=== PATIENT | female | born 1945 | race Caucasian/White ===

== ENCOUNTER 2016-07-25 20:09 | Inpatient (IN) | payer MEDICARE ==
[~2016-07-25] VITALS: Ht 165.1 cm; Wt 80.0 kg
[~2016-07-25 20:09] MED LIST: ALEN1TAB48 PO; ASPI1TAB69 PO; CEPH-460 PO; CO Q200C PO; LEVO125T4 PO; LISI-515 PO; LOVA20TA PO; METO50TA PO; MULTCAP13 PO; NIAC500C4; OXYB5TAB10 PO; PROBCAP3 PO; ZOFR4TAB3 SL
[2016-07-25 20:12] VITALS: BP 197/99; PULSE 82; RESP 16; TEMP 98.2; O2SAT 99
[2016-07-25] MEDS ORDERED: SODIUM CHLOR 0.9% 1000 ML INJ 1,000 ML IV SCH ×2 (20:25→22:09)
[2016-07-25] MEDS ORDERED: MORPHINE SULFATE 4 MG/ML INJ IV PUSH ONE (20:30)
[2016-07-25] MEDS ORDERED: SODIUM CHLORIDE 0.9% FLUSH 5 ML FLUSH IVF PRN (20:30)
[2016-07-25] MEDS ORDERED: FAMOTIDINE 20 MG/2 ML VIAL IV PUSH ONE (20:30)
--- NOTE | 2016-07-25 20:50 | PD ---
HPI Chief Complaint: Abdominal Pain Time Seen by Provider: 20:15 Travel History International Travel<30 days: No Contact w/Intl Traveler<30days: No Traveled to known affect area: No History of Present Illness HPI The patient is a 71-year-old female who presents to the emergency department via EMS for nausea, vomiting, and epigastric abdominal pain. The patient states her symptoms started this morning with epigastric abdominal pain that felt like a "knot", nonradiating, similar to reflux, and associated with mild nausea. The patient didn't develop vomiting approximate 5 PM tonight which she describes as yellow in color. The patient's last bowel movement was this morning, normal per the patient, and she has been passing gas without difficulty. The patient does have a history of previous abdominal surgeries including cholecystectomy, appendectomy, hysterectomy, and surgery for small bowel obstruction. The patient also notes a chronic abdominal hernia were her incisions relocated. The patient denies any fever, chills, or sweats. She denies any accompanying diarrhea. The patient's symptoms are moderate, there are no alleviating or exacerbating factors. The patient's primary physician is Dr. Peres. [facility] Past Medical History Cancer: No Cardiovascular Problems: No High Cholesterol: Yes Diabetes: No Diminished Hearing: No Endocrine: No Glaucoma: Yes Genitourinary: No Hepatitis: Yes ( YOUTH) Hiatal Hernia: No Hypertension: Yes Immune Disorder: No Musculoskeletal: Yes (ARTHRITIS, R ROTATOR CUFF) Neurologic: No Psychiatric: No Reproductive: No Respiratory: No Thyroid Disease: Yes (HYPO ) Tetanus Vaccination: < 5 Years Menopausal: Yes Past Surgical History Abdominal Surgery: Yes (APPY, CHOLECYSTECTOMY 1974) Appendectomy: Yes Body Medical Devices: LEFT WRIST TITANIUM PLATE AND SCREWS Cholecystectomy: Yes Eye Surgery: Yes (ZINA CATARACT SURGERY 2011) Gynecologic Surgery: Yes (TOTAL ABDOMINAL HYSTERECTOMY 1989) Hysterectomy: Yes Joint Replacement: No Oral Surgery: Yes (T & A) Pacemaker: No Tonsillectomy: Yes Other Surgery: Yes (bowel ob) Social History Alcohol Use: Yes (WINE OCCASIONALLY) Tobacco Use: No Substance Use: No Allergies-Medications (Allergen,Severity, Reaction): Coded Allergies: Codeine (Verified Allergy, Severe, RASH, 07/25/16) Sulfa (Verified Allergy, Severe, NAUSEA, 07/25/16) WILLIAM Inhibitors (Unverified Adverse Reaction, Intermediate, SEVERE HEADACHE , 07/25/16) Reported Meds & Prescriptions Reported Meds & Active Scripts Active Zofran Odt (Ondansetron Odt) 4 Mg Tab 4 Mg SL Q8HR PRN May substitute non-ODT form. Reported Probiotic & Acidophilus F (Probiotic Product) 1 Cap Cap Multi Complete (Multiple Vitamins W/ Minerals) 1 Cap Cap Co Q-10 (Coenzyme Q10 (Ubidecarenone)) 200 Mg Cap Ditropan (Oxybutynin Chloride) 5 Mg Tab 5 Mg PO DAILY Metoprolol Tartrate 50 Mg Tab 50 Mg PO BID Lovastatin 20 Mg Tab 40 Mg PO DAILY Lisinopril 20 Mg Tab 20 Mg PO BID Levothyroxine (Levothyroxine Sodium) 125 Mcg Tab 125 Mcg PO DAILY Alendronate (Alendronate Sodium) 70 Mg Tab 70 Mg PO Q7D Aspirin 81 Mg Tabdr 81 Mg PO DAILY Review of Systems Except as stated in HPI: all other systems reviewed are Neg General / Constitutional: No: Fever Cardiovascular: No: Chest Pain or Discomfort Respiratory: No: Shortness of Breath Gastrointestinal: Positive: Nausea, Vomiting, Abdominal Pain, No: Diarrhea Genitourinary: No: Dysuria Musculoskeletal: No: Myalgias Physical Exam Narrative GENERAL: Awake, alert, pleasant 71-year-old female who appears her stated age and is in no acute respiratory distress. SKIN: Warm and dry. HEAD: Atraumatic. Normocephalic. EYES: Pupils equal and round. No scleral icterus. No injection or drainage. ENT: No nasal bleeding or discharge. Slightly dry mucous membranes. NECK: Trachea midline. No JVD. CARDIOVASCULAR: Regular rate and rhythm. No murmur appreciated. RESPIRATORY: No accessory muscle use. Clear to auscultation. Breath sounds equal bilaterally. GASTROINTESTINAL: Abdomen soft, mild epigastric tenderness. Well-healed scar from the umbilicus inferiorly with reducible anterior abdominal wall hernia. MUSCULOSKELETAL: No obvious deformities. No clubbing. No cyanosis. No edema. NEUROLOGICAL: Awake and alert. No obvious cranial nerve deficits. Motor grossly within normal limits. Normal speech. PSYCHIATRIC: Appropriate mood and affect; insight and judgment normal. Data Data Last Documented VS Vital Signs Date Time Temp Pulse Resp B/P Pulse Ox O2 Delivery O2 Flow Rate FiO2 07/25/16 21:35 16 07/25/16 20:58 99 Room Air 07/25/16 20:12 98.2 82 197/99 Orders Complete Blood Count With Diff (07/25/16 20:25) Comprehensive Metabolic Panel (07/25/16 20:25) Lipase (07/25/16 20:25) Urinalysis - C+S If Indicated (07/25/16 20:25) Ct Abd/Pel W/O Iv Contrast (07/25/16 20:25) Iv Access Insert/Monitor (07/25/16 20:25) Ecg Monitoring (07/25/16 20:25) Oximetry (07/25/16 20:25) Morphine Inj (Morphine Inj) (07/25/16 20:30) Sodium Chlor 0.9% 1000 Ml Inj (Ns 1000 M (07/25/16 20:25) Sodium Chloride 0.9% Flush (Ns Flush) (07/25/16 20:30) Famotidine Inj (Pepcid Inj) (07/25/16 20:30) Urine Culture (07/25/16 20:50) Ceftriaxone Inj (Rocephin Inj) (07/25/16 22:00) Consult Colorectal Surgery (07/25/16 ) Ns + Kcl 20 Meq Inj (Ns + Kcl 20 Meq Inj (07/25/16 22:00) Labs Laboratory Tests Test 07/25/16 07/25/16 20:37 20:50 White Blood Count 20.2 TH/MM3 Red Blood Count 4.47 MIL/MM3 Hemoglobin 13.7 GM/DL Hematocrit 41.4 % Mean Corpuscular Volume 92.6 FL Mean Corpuscular Hemoglobin 30.7 PG Mean Corpuscular Hemoglobin 33.1 % Concent Red Cell Distribution Width 14.0 % Platelet Count 281 TH/MM3 Mean Platelet Volume 9.9 FL Neutrophils (%) (Auto) 92.5 % Lymphocytes (%) (Auto) 4.0 % Monocytes (%) (Auto) 3.3 % Eosinophils (%) (Auto) 0.1 % Basophils (%) (Auto) 0.1 % Neutrophils # (Auto) 18.7 TH/MM3 Lymphocytes # (Auto) 0.8 TH/MM3 Monocytes # (Auto) 0.7 TH/MM3 Eosinophils # (Auto) 0.0 TH/MM3 Basophils # (Auto) 0.0 TH/MM3 CBC Comment DIFF FINAL Differential Comment Sodium Level 141 MEQ/L Potassium Level 3.3 MEQ/L Chloride Level 102 MEQ/L Carbon Dioxide Level 30.6 MEQ/L Anion Gap 8 MEQ/L Blood Urea Nitrogen 22 MG/DL Creatinine 1.11 MG/DL Estimat Glomerular Filtration 49 ML/MIN Rate Random Glucose 112 MG/DL Calcium Level 9.6 MG/DL Total Bilirubin 0.5 MG/DL Aspartate Amino Transf 22 U/L (AST/SGOT) Alanine Aminotransferase 28 U/L (ALT/SGPT) Alkaline Phosphatase 75 U/L Total Protein 7.4 GM/DL Albumin 4.0 GM/DL Lipase 143 U/L Urine Color YELLOW Urine Turbidity CLOUDY Urine pH 8.0 Urine Specific [place] 1.013 Urine Protein TRACE mg/dL Urine Glucose (UA) NEG mg/dL Urine Ketones 40 mg/dL Urine Occult Blood NEG Urine Nitrite NEG Urine Bilirubin NEG Urine Urobilinogen LESS THAN 2.0 MG/DL Urine Leukocyte Esterase LARGE Urine RBC 5 /hpf Urine WBC 52 /hpf Urine Squamous Epithelial <1 /hpf Cells Urine Amorphous Sediment RARE Urine Bacteria RARE /hpf Microscopic Urinalysis Comment CULTURE INDICATED MDM Medical Decision Making Medical Screen Exam Complete: Yes Emergency Medical Condition: Yes Medical Record Reviewed: Yes Interpretation(s) CT of the abdomen and pelvis reveals small bowel obstruction secondary to inferior periumbilical hernia containing a loop of small bowel with adjacent inflammatory changes. Fat-containing hernia along the lower abdominal wall inferior to the umbilicus. Punctate nonobstructing left renal calculus measuring 2 mm. Last Impressions Abdomen/Pelvis CT 07/25/162024 Signed Impressions: Service Date/Time: Monday, July 25, 2016 20:33 - CONCLUSION: 1. Small bowel obstruction secondary to inferior paraumbilical hernia containing a loop of small bowel with adjacent inflammatory changes. 2. Fat-containing hernia along the lower abdominal wall inferior to the umbilicus. 3. Punctate nonobstructing left renal calculus measuring 2 mm. Skip Arrieta MD Laboratory Tests Test 07/25/16 07/25/16 20:37 20:50 White Blood Count 20.2 TH/MM3 Red Blood Count 4.47 MIL/MM3 Hemoglobin 13.7 GM/DL Hematocrit 41.4 % Mean Corpuscular Volume 92.6 FL Mean Corpuscular Hemoglobin 30.7 PG Mean Corpuscular Hemoglobin 33.1 % Concent Red Cell Distribution Width 14.0 % Platelet Count 281 TH/MM3 Mean Platelet Volume 9.9 FL Neutrophils (%) (Auto) 92.5 % Lymphocytes (%) (Auto) 4.0 % Monocytes (%) (Auto) 3.3 % Eosinophils (%) (Auto) 0.1 % Basophils (%) (Auto) 0.1 % Neutrophils # (Auto) 18.7 TH/MM3 Lymphocytes # (Auto) 0.8 TH/MM3 Monocytes # (Auto) 0.7 TH/MM3 Eosinophils # (Auto) 0.0 TH/MM3 Basophils # (Auto) 0.0 TH/MM3 CBC Comment DIFF FINAL Differential Comment Sodium Level 141 MEQ/L Potassium Level 3.3 MEQ/L Chloride Level 102 MEQ/L Carbon Dioxide Level 30.6 MEQ/L Anion Gap 8 MEQ/L Blood Urea Nitrogen 22 MG/DL Creatinine 1.11 MG/DL Estimat Glomerular Filtration 49 ML/MIN Rate Random Glucose 112 MG/DL Calcium Level 9.6 MG/DL Total Bilirubin 0.5 MG/DL Aspartate Amino Transf 22 U/L (AST/SGOT) Alanine Aminotransferase 28 U/L (ALT/SGPT) Alkaline Phosphatase 75 U/L Total Protein 7.4 GM/DL Albumin 4.0 GM/DL Lipase 143 U/L Urine Color YELLOW Urine Turbidity CLOUDY Urine pH 8.0 Urine Specific [place] 1.013 Urine Protein TRACE mg/dL Urine Glucose (UA) NEG mg/dL Urine Ketones 40 mg/dL Urine Occult Blood NEG Urine Nitrite NEG Urine Bilirubin NEG Urine Urobilinogen LESS THAN 2.0 MG/DL Urine Leukocyte Esterase LARGE Urine RBC 5 /hpf Urine WBC 52 /hpf Urine Squamous Epithelial <1 /hpf Cells Urine Amorphous Sediment RARE Urine Bacteria RARE /hpf Microscopic Urinalysis Comment CULTURE INDICATED Differential Diagnosis Differential diagnosis includes gastritis, pancreatitis, retained biliary stone , colitis, partial small bowel obstruction, ileus, viral syndrome, dehydration. Narrative Course IV was established, labs were drawn and sent, and the patient was placed on cardiac telemetry monitoring and continuous pulse oximetry monitoring. The patient received Zofran by EMS, therefore, was administered morphine for her discomfort and IV fluids. CT of the abdomen and pelvis was ordered. Patient was also administered Pepcid. CT of the abdomen and pelvis reveals a small bowel obstruction secondary to inferior periumbilical hernia containing a loop of small bowel with adjacent inflammatory changes and fat-containing hernia along the lower abdominal wall inferior to the umbilicus. I was able to reduce the patient's hernia, she had no overlying erythema or significant tenderness associated with the hernia and with the reduction. However, when the patient would sit up right, the hernia would reappear. The patient's surgeon who has been following her hernia is Dr. Carlos, therefore, Dr. Carlos was paged at 9: 06 PM. I discussed the patient with Dr. Carlos at 9:35 PM, he states the patient's hernia has been reducible in the past. Upon examination, the patient's hernia here was reducible and her symptoms improved. After discussion, was agreed if the patient feels better and labs are unremarkable, patient will be discharged home with abdominal binder. However, patient's white count was elevated at 20.2. Patient is afebrile, UA was positive for UTI. Patient had stranding on CT, but hernia is reducible, patient may have partial small bowel obstruction from surgical adhesions, however, do not believe the hernia as the cause of the possible small bowel obstruction. Therefore, patient will be admitted, kept nothing by mouth, and administered IV fluids. The patient was also administered Rocephin 1 g intravenously for UTI. The patient's primary physician is Dr. Starr's, therefore, [facility] were paged for admission. I will put a routine consultation for Dr. Carlos, however, I do believe the patient's hernia is reducible and not the cause of the patient's current symptoms. Physician Communication Physician Communication [facility] were paged for admission. I discussed the patient with Dr. Packer who agrees with admission. Diagnosis Primary Impression: Small bowel obstruction Additional Impression: Urinary tract infection Qualified Code: N30.00 - Acute cystitis without hematuria Admitting Information Admitting Physician Requests: Admit Condition: Stable Fito Gilbert MD Jul 25, 2016 20:50
--- NOTE | 2016-07-25 20:54 | RADRPT ---
EXAM DATE/TIME: 07/25/2016 20:33 [facility] COMPARISON: No previous studies available for comparison. INDICATIONS : Epigastric pain with nausea and vomiting today. ORAL CONTRAST: No oral contrast ingested. RADIATION DOSE: 9.96 CTDIvol (mGy) MEDICAL HISTORY : Hypertension. Hepatitis. sbo, hernia SURGICAL HISTORY : Cholecystectomy. Appendectomy.Hysterectomy. ENCOUNTER: Initial ACUITY: 1 day PAIN SCALE: 8/10 LOCATION: abdomen TECHNIQUE: Volumetric scanning of the abdomen and pelvis was performed. Using automated exposure control and ad justment of the mA and/or kV according to patient size, radiation dose was kept as low as reasonably achievable to obtain optimal diagnostic quality images. FINDINGS: LOWER LUNGS: The visualized lower lungs are clear. LIVER: Homogeneous density without lesion. There is no dilation of the biliary tree. No calcified gallston es. SPLEEN: Normal size without lesion. PANCREAS: Within normal limits. KIDNEYS: Normal in size and shape. There is no mass, stone, or hydronephrosis on the right. Punctate calculus on the left. ADRENAL GLANDS: Within normal limits. VASCULAR: There is no aortic aneurysm. BOWEL/MESENTERY: Dilated small bowel loops leading to periumbilical hernia.. There is no free intraperitoneal air or fluid. ABDOMINAL WALL: Inferior paraumbilical hernia containing small loop of bowel with inflammation. More inferiorly a sec ond fat containing hernia RETROPERITONEUM: There is no lymphadenopathy. BLADDER: No wall thickening or mass. REPRODUCTIVE: Within normal limits. INGUINAL: There is no lymphadenopathy or hernia. MUSCULOSKELETAL: Within normal limits for patient age. CONCLUSION: 1. Small bowel obstruction secondary to inferior paraumbilical hernia containing a loop of small asha l with adjacent inflammatory changes. 2. Fat-containing hernia along the lower abdominal wall inferior to the umbilicus. 3. Punctate nonobstructing left renal calculus measuring 2 mm. Skip Arrieta MD on July 25, 2016 at 20:50 Board Certified Radiologist. This report was verified electronically.
[2016-07-25 20:58] VITALS: RESP 16; O2SAT 99
[2016-07-25 21:22] LABS: AUTOMATED NEUTROPHIL # 18.7 TH/MM3 (1.8-7.7); BASOPHIL % 0.1 % (0.0-2.0); EOSINOPHIL % 0.1 % (0.0-4.0); HEMATOCRIT 41.4 % (35.0-46.0); HEMO FLAGS DIFF FINAL; LYMPHOCYTE # 0.8 TH/MM3 (1.0-4.8); MEAN CELL VOLUME 92.6 FL (80.0-100.0); MEAN CORPUSCULAR HEMOGLOBIN 30.7 PG (27.0-34.0); MEAN CORPUSCULAR HGB CONC 33.1 % (32.0-36.0); MONO % 3.3 % (0.0-8.0); NEUT % 92.5 % (16.0-70.0); PLATELET COUNT 281 TH/MM3 (150-450); RED BLOOD COUNT 4.47 MIL/MM3 (4.00-5.30); WHITE BLOOD COUNT 20.2 TH/MM3 (4.0-11.0)
[2016-07-25 21:46] LABS: BACTERIA, URINE RARE /hpf; BLOOD, URINE NEG (NEG); COMMENT (UR) CULTURE INDICATED; CULTURE IF INDICATED CULTURE INDICATED; GLUCOSE,URINE NEG (NEG); KETONE, URINE 40 mg/dL (NEG); NITRITE,URINE NEG (NEG); SQUAMOUS EPITHELIAL CELL URINE <1 /hpf (0-5); URINE COLOR YELLOW (YELLW/STRAW)
[2016-07-25 21:48] LABS: ALT (GPT) 28 U/L (10-53); ANION GAP 8 MEQ/L (5-15); AST (GOT) 22 U/L (15-37); BICARBONATE 30.6 MEQ/L (21.0-32.0); BLOOD UREA NITROGEN 22 MG/DL (7-18); CHLORIDE 102 MEQ/L (98-107); GLOMERULAR FILTRATION RATE 49 ML/MIN (>89); POTASSIUM 3.3 MEQ/L (3.5-5.1); SODIUM (NA) 141 MEQ/L (136-145)
[2016-07-25 21:50] LABS: ALKALINE PHOSPHATASE 75 U/L (45-117); TOTAL BILIRUBIN ADULT 0.5 MG/DL (0.2-1.0)
[2016-07-25] MEDS ORDERED: cefTRIAXone INJ 1,000 MG in SODIUM CHLORIDE 0.9% INJ 100 ML IV ONE (22:00)
[2016-07-25] MEDS ORDERED: MORPHINE SULFATE 4 MG/ML INJ IV PUSH PRN (22:15)
[2016-07-25] MEDS ORDERED: SODIUM CHLORIDE 0.9% FLUSH 5 ML FLUSH FLUSH PRN (22:15)
[2016-07-25] MEDS ORDERED: NALOXONE HCL 0.4 MG/ML AMP IV PRN (22:15)
[2016-07-25] MEDS ORDERED: ONDANSETRON HCL 4 MG/2 ML VIAL IVP PRN (22:15)
[2016-07-25] MEDS: NS + KCL 20 MEQ INJ 1,000 ML IV SCH (22:31)
--- NOTE | 2016-07-26 00:53 | HHI.HP ---
[facility] Service [facility] Primary Care Physician Sandy Peres MD Admission Diagnosis small bowel obstruction, reducible hernia, UTI, leukocytosis, hypoka Diagnoses: Chief Complaint: abd pain and vomiting Travel History International Travel<30 Days: No Contact w/Intl Traveler <30 Da: No Traveled to Known Affected Are: No History of Present Illness History taken from patient and ED physician. 71-year-old female with a history of hypertension, hypothyroidism, hyperlipidemia and arthritis presented to the ED with complaints of epigastric pain and vomiting. Patient states at home she was having epigastric pain and vomited twice at home. No vomiting in hospital. She states her last BM was yesterday, and is unsure if she is passing gas. She denies any chest pain, sob, fever or chills. She does have a history of bowel obstruction, last episode was June 2015. Patient does have a large hernia that was reduced in ER, patient states she is having less pain since it was reduced. Review of Systems Constitutional: DENIES: Fever, Chills Respiratory: DENIES: Cough, Sputum production, Shortness of breath Cardiovascular: DENIES: Chest pain, Lower Extremity Edema, Orthopnea Gastrointestinal: COMPLAINS OF: Abdominal pain, DENIES: Black stools, Bloody stools, Constipation, Diarrhea, Nausea, Vomiting Genitourinary: DENIES: Hematuria, Dysuria Musculoskeletal: DENIES: Joint pain, Back pain, Neck pain Integumentary: DENIES: Rash Hematologic/lymphatic: DENIES: Lymphadenopathy Immunologic/allergic: DENIES: Urticaria Neurologic: DENIES: Headache, Localized weakness Past Family Social History Past Medical History Hepatitis as a child, unknown what kind Hypertension Hyperlipidemia Arthritis Bowel obstruction 06/2015 Past Surgical History Hysterectomy Appendectomy Cholecystectomy ORIF of left wrist Right rotator cuff surgery Reported Medications Reported Meds & Active Scripts Active Zofran Odt (Ondansetron Odt) 4 Mg Tab 4 Mg SL Q8HR PRN May substitute non-ODT form. Reported Probiotic & Acidophilus F (Probiotic Product) 1 Cap Cap Multi Complete (Multiple Vitamins W/ Minerals) 1 Cap Cap Co Q-10 (Coenzyme Q10 (Ubidecarenone)) 200 Mg Cap Ditropan (Oxybutynin Chloride) 5 Mg Tab 5 Mg PO DAILY Metoprolol Tartrate 50 Mg Tab 50 Mg PO BID Lovastatin 20 Mg Tab 40 Mg PO DAILY Lisinopril 20 Mg Tab 20 Mg PO BID Levothyroxine (Levothyroxine Sodium) 125 Mcg Tab 125 Mcg PO DAILY Alendronate (Alendronate Sodium) 70 Mg Tab 70 Mg PO Q7D Aspirin 81 Mg Tabdr 81 Mg PO DAILY Allergies: Coded Allergies: Codeine (Verified Allergy, Severe, RASH, 08/20/16) Sulfa (Verified Allergy, Severe, NAUSEA, 08/20/16) WILLIAM Inhibitors (Unverified Adverse Reaction, Intermediate, SEVERE HEADACHE , 08/20/16) Active Ordered Medications Current Medications Medications (Trade) Dose Ordered Sig/Melvin Route Start Time Stop Time Status Last Admin IV Flush 2 ml 2 ml UNSCH PRN IVF 07/25/16 20:30 (NS + KCl 20 Meq Inj) 1,000 ml @ 125 mls/hr Q8H IV 07/25/16 22:00 07/25/16 22:31 (NS Flush) 2 ml UNSCH PRN FLUSH 07/25/16 22:15 (NS Flush) 2 ml BID FLUSH 07/26/16 09:00 (Zofran Inj) 4 mg Q6H PRN IVP 07/25/16 22:15 (Narcan Inj) 0.4 mg UNSCH PRN IV 07/25/16 22:15 Morphine Sulfate 2 mg 2 mg Q4HR PRN IV PUSH 07/25/16 22:15 (Rocephin Inj/NS Inj) 100 ml @ 200 mls/hr Q24H IV 07/26/16 22:00 Family History Mom: heart disease Dad: lung disease Social History Tobacco use: Denies Alcohol use: Occasionally Illicit drug use: Denies Physical Exam Vital Signs Vital Signs Date Time Temp Pulse Resp B/P Pulse Ox O2 Delivery O2 Flow Rate FiO2 07/25/16 21:35 16 07/25/16 20:58 16 99 Room Air 07/25/16 20:21 16 07/25/16 20:12 98.2 82 16 197/99 99 Physical Exam GENERAL: This is a well-nourished, well-developed patient, in no apparent distress. SKIN: No rashes, ecchymoses or lesions. Cool and dry. HEAD: Atraumatic. Normocephalic. EYES: Pupils equal round and reactive. ENT: Nose without bleeding, purulent drainage or septal hematoma. Airway patent. NECK: Trachea midline. No JVD CARDIOVASCULAR: Regular rate and rhythm without murmurs, gallops, or rubs. RESPIRATORY: Clear to auscultation. Breath sounds equal bilaterally. No wheezes , rales, or rhonchi. GASTROINTESTINAL: Abdomen soft, tender, nondistended. Ventral hernia noted. No guarding. MUSCULOSKELETAL: Extremities without clubbing, cyanosis, or edema. No joint tenderness, effusion, or edema noted. No calf tenderness. NEUROLOGICAL: Awake and alert.Motor and sensory grossly within normal limits. Normal speech. Laboratory Laboratory Tests Test 07/25/16 07/25/16 20:37 20:50 White Blood Count 20.2 Red Blood Count 4.47 Hemoglobin 13.7 Hematocrit 41.4 Mean Corpuscular Volume 92.6 Mean Corpuscular Hemoglobin 30.7 Mean Corpuscular Hemoglobin 33.1 Concent Red Cell Distribution Width 14.0 Platelet Count 281 Mean Platelet Volume 9.9 Neutrophils (%) (Auto) 92.5 Lymphocytes (%) (Auto) 4.0 Monocytes (%) (Auto) 3.3 Eosinophils (%) (Auto) 0.1 Basophils (%) (Auto) 0.1 Neutrophils # (Auto) 18.7 Lymphocytes # (Auto) 0.8 Monocytes # (Auto) 0.7 Eosinophils # (Auto) 0.0 Basophils # (Auto) 0.0 CBC Comment DIFF FINAL Differential Comment Sodium Level 141 Potassium Level 3.3 Chloride Level 102 Carbon Dioxide Level 30.6 Anion Gap 8 Blood Urea Nitrogen 22 Creatinine 1.11 Estimat Glomerular Filtration 49 Rate Random Glucose 112 Calcium Level 9.6 Total Bilirubin 0.5 Aspartate Amino Transf 22 (AST/SGOT) Alanine Aminotransferase 28 (ALT/SGPT) Alkaline Phosphatase 75 Total Protein 7.4 Albumin 4.0 Lipase 143 Urine Color YELLOW Urine Turbidity CLOUDY Urine pH 8.0 Urine Specific [place] 1.013 Urine Protein TRACE Urine Glucose (UA) NEG Urine Ketones 40 Urine Occult Blood NEG Urine Nitrite NEG Urine Bilirubin NEG Urine Urobilinogen LESS THAN 2.0 Urine Leukocyte Esterase LARGE Urine RBC 5 Urine WBC 52 Urine Squamous Epithelial <1 Cells Urine Amorphous Sediment RARE Urine Bacteria RARE Microscopic Urinalysis Comment CULTURE INDICATED Date/Time Procedure Status Source Growth 07/25/16 20:50 Urine Culture Received Urine Clean Catch Pending Result Diagram: 07/25/16203607/25/162036 Imaging Last Impressions Abdomen/Pelvis CT 07/25/162024 Signed Impressions: Service Date/Time: Monday, July 25, 2016 20:33 - CONCLUSION: 1. Small bowel obstruction secondary to inferior paraumbilical hernia containing a loop of small bowel with adjacent inflammatory changes. 2. Fat-containing hernia along the lower abdominal wall inferior to the umbilicus. 3. Punctate nonobstructing left renal calculus measuring 2 mm. Skip Arrieta MD Assessment and Plan Problem List: (1) Small bowel obstruction ICD Code: K56.69 Status: Acute (2) Urinary tract infection ICD Code: N39.0 Status: Acute (3) Hypokalemia ICD Code: E87.6 Status: Acute (4) Hypertension ICD Code: I10 Status: Chronic (5) CKD (chronic kidney disease) stage 3, GFR 30-59 ml/min ICD Code: N18.3 Status: Chronic Assessment and Plan 71-year-old female with a history of hypertension, hypothyroidism, hyperlipidemia and arthritis presented with: Small bowel obstruction Images: Abdominal/pelvis CT shows Small bowel obstruction secondary to inferior paraumbilical hernia containing a loop of small bowel with adjacent inflammatory changes.Fat-containing hernia along the lower abdominal wall inferior to the umbilicus. Punctate nonobstructing left renal calculus measuring 2 mm. -Consult colorectal surgery -Nothing by mouth -Check hepatitis panel, unknown type as a child Urinary tract infection Labs: WBC 20, neutrophils 93%, UA shows large esterase -IV Rocephin -Urine culture pending Hypokalemia Labs: Potassium 3.3 -Supportive IVF NS 20K -Trend BMP Hypertension, chronic -Reorder home medications: Lisinopril, metoprolol -Monitor vitals Chronic kidney disease, stage 3, chronic Labs: GFR 49 -Avoid nephrotoxic medications DVT prophylaxis: SCDs Written by April DIXON, acting as scribe for Dr. Packer on 07/26/16 at 0442. The documentation accurately reflects the work performed [id number] and decisions made by me and the physician Dr Packer on 07/26/16. All or portions of this note were transcribed by diony [April Rangel]. I, Dr. Fernando Packer personally performed the history, physical exam, and medical decision making; and confirmed the accuracy of the information in the transcribed note. Authenticated by Dr. Fernando Packer on 07/26/16 at 0445 Discussed Condition With Patient and RN Physician Certification 2 Midnight Certification Type: Admission for Inpatient Services Order for Inpatient Services The services are ordered in accordance with Medicare regulations or non- Medicare payer requirements, as applicable. In the case of services not specified as inpatient-only, they are appropriately provided as inpatient services in accordance with the 2-midnight benchmark. Estimated LOS (days): 3 days is the estimated time the patient will need to remain in the hospital, assuming treatment plan goals are met and no additional complications. Post-Hospital Plan: Home Problem Qualifiers (1) Urinary tract infection: Qualified Code: N30.00 - Acute cystitis without hematuria April Rangel Jul 26, 2016 00:53 Fernando Packer MD Aug 31, 2016 13:04
[2016-07-26] MEDS ORDERED: HYDROcodone 5 MG/HOMATROPINE 1.5 MG SYRUP 5 ML CUP PO ONE (01:45)
[2016-07-26 03:31] VITALS: BP 177/86; PULSE 80; RESP 18; O2SAT 99
[2016-07-26 05:51] LABS: AUTOMATED NEUTROPHIL # 9.7 TH/MM3 (1.8-7.7); BASOPHIL % 0.1 % (0.0-2.0); EOSINOPHIL % 0.1 % (0.0-4.0); HEMATOCRIT 36.9 % (35.0-46.0); HEMO FLAGS DIFF FINAL; LYMPH % 12.7 % (9.0-44.0); LYMPHOCYTE # 1.5 TH/MM3 (1.0-4.8); MEAN CELL VOLUME 92.6 FL (80.0-100.0); MEAN CORPUSCULAR HEMOGLOBIN 31.3 PG (27.0-34.0); MEAN CORPUSCULAR HGB CONC 33.8 % (32.0-36.0); NEUT % 81.1 % (16.0-70.0); PLATELET COUNT 259 TH/MM3 (150-450); RED BLOOD COUNT 3.99 MIL/MM3 (4.00-5.30); RED CELL DISTRIBUTION WIDTH 14.2 % (11.6-17.2)
[2016-07-26 06:00] LABS: BICARBONATE 27.8 MEQ/L (21.0-32.0); POTASSIUM 4.2 MEQ/L (3.5-5.1)
[2016-07-26] MEDS: NS + KCL 20 MEQ INJ 1,000 ML IV SCH (06:03)
[2016-07-26 07:38] VITALS: BP 155/77; PULSE 91; RESP 18; O2SAT 96
--- NOTE | 2016-07-26 07:55 | HHI.PR ---
Subjective Remarks in no distress. afebrile. abdominal pain is better. no nausea or vomiting. Objective Vitals Vital Signs Date Time Temp Pulse Resp B/P Pulse Ox O2 Delivery O2 Flow Rate FiO2 07/26/16 07:38 91 18 155/77 96 Room Air 07/26/16 06:02 18 07/26/16 03:31 80 18 177/86 99 Room Air 07/25/16 21:35 16 07/25/16 20:58 16 99 Room Air 07/25/16 20:21 16 07/25/16 20:12 98.2 82 16 197/99 99 Result Diagram: 07/26/16 0504 07/26/16 0504 Imaging Last Impressions Abdomen/Pelvis CT 07/25/162024 Signed Impressions: Service Date/Time: Monday, July 25, 2016 20:33 - CONCLUSION: 1. Small bowel obstruction secondary to inferior paraumbilical hernia containing a loop of small bowel with adjacent inflammatory changes. 2. Fat-containing hernia along the lower abdominal wall inferior to the umbilicus. 3. Punctate nonobstructing left renal calculus measuring 2 mm. Skip Arrieta MD Objective Remarks GENERAL: This is a well-nourished, well-developed patient, in no apparent distress. CARDIOVASCULAR: Regular rate and regular rhythm without murmurs, gallops, or rubs. RESPIRATORY: Clear to auscultation. Breath sounds equal bilaterally. No wheezes , rales, or rhonchi. GASTROINTESTINAL: Abdomen soft, non-tender, nondistended. Normal, active bowel sounds MUSCULOSKELETAL: Extremities without clubbing, cyanosis, or edema. NEURO: Alert & Oriented x4 to person, place, time, situation. Moves all ext x4 Procedures none Medications and IVs Current Medications Morphine Sulfate 2 mg 2 mg ONCE ONCE IV PUSH Last administered on 07/25/16 20: 57; Start 07/25/16 at 20:30; Stop 07/25/16 at 20:31; Status DC Sodium Chloride (NS 1000 ml Inj) 1,000 ml @ 1,000 mls/hr Q1H IV Last administered on 07/25/16 20:57; Start 07/25/16 at 20:25; Stop 07/25/16 at 21:24; Status DC IV Flush (NS Flush) 2 ml UNSCH PRN IVF FLUSH AFTER USING IV ACCESS; Start at 20:30 Famotidine 20 mg 20 mg ONCE ONCE IV PUSH Last administered on 07/25/16 20:57; Start 07/25/16 at 20:30; Stop 07/25/16 at 20:31; Status DC Ceftriaxone Sodium 1000 mg/ Sodium Chloride 100 ml @ 200 mls/hr ONCE ONCE IV Last administered on 07/25/16 22:31; Start 07/25/16 at 22:00; Stop 07/25/16 at 22: 29; Status DC Potassium Chloride/Sodium Chloride 1,000 ml @ 125 mls/hr Q8H IV Last administered on 07/26/16 06:03; Start 07/25/16 at 22:00 Sodium Chloride (NS 1000 ml Inj) 1,000 ml @ 100 mls/hr Q10H IV ; Start 07/25/16 at 22:09; Stop 07/25/16 at 22:12; Status DC IV Flush (NS Flush) 2 ml UNSCH PRN FLUSH FLUSH AFTER USING IV ACCESS; Start 07/25/16 at 22:15 IV Flush (NS Flush) 2 ml BID FLUSH ; Start 07/26/16 at 09:00 Ondansetron HCl (Zofran Inj) 4 mg Q6H PRN IVP NAUSEA OR VOMITING; Start at 22:15 Naloxone HCl (Narcan Inj) 0.4 mg UNSCH PRN IV SEE LABEL COMMENTS; Start at 22:15 Morphine Sulfate 2 mg 2 mg Q4HR PRN IV PUSH pain >5 Last administered on 05:11; Start 07/25/16 at 22:15 Ceftriaxone Sodium/Sodium Chloride (Rocephin Inj/NS Inj) 100 ml @ 200 mls/hr Q24H IV ; Start 07/26/16 at 22:00 Hydrocodone Bit/ Homatropine Methylb (Hycodan Liq) 5 ml NOW ONCE PO ; Start 07/26/16 at 01:45; Stop 07/26/16 at 01:45; Status DC A/P Assessment and Plan A/P Small bowel obstruction Images: Abdominal/pelvis CT shows Small bowel obstruction secondary to inferior paraumbilical hernia containing a loop of small bowel with adjacent inflammatory changes.Fat-containing hernia along the lower abdominal wall inferior to the umbilicus. Punctate nonobstructing left renal calculus measuring 2 mm. -Consult colorectal surgery -Nothing by mouth -start on IV antibiotics Urinary tract infection Labs: WBC 20, neutrophils 93%, UA shows large esterase -IV Rocephin -Urine culture pending Hypokalemia replaced Hypertension, chronic -vasotec prn -resume home meds soon Chronic kidney disease, stage 3, chronic -Avoid nephrotoxic medications hypothyroidism; resume home meds soon DVT prophylaxis: Jesusita Amaya MD Jul 26, 2016 07:55
[2016-07-26] MEDS ORDERED: ENALAPRILAT 1.25 MG/ML VIAL IV PUSH PRN (08:00)
[2016-07-26] MEDS ORDERED: SODIUM CHLORIDE 0.9% FLUSH 5 ML FLUSH FLUSH SCH (09:00)
[2016-07-26] MEDS ORDERED: metroNIDAZOLE 500 MG INJ 100 ML IV SCH (09:00)
[2016-07-26] MEDS ORDERED: METR-1 PO ×2 (11:47→13:06)
[2016-07-26] MEDS ORDERED: CIPR-9 PO ×2 (11:47→13:06)
[2016-07-26 12:33] VITALS: BP 157/88; PULSE 88; RESP 18; O2SAT 95
[2016-07-26] MEDS ORDERED: cefTRIAXone INJ 1,000 MG in SODIUM CHLORIDE 0.9% INJ 100 ML IV SCH (22:00)
--- NOTE | 2016-07-26 22:10 | HHI.PR ---
Subjective Remarks C/R Surg 71 yo w female with ventral hernia from prev laparotomy, c/o pain, N/V before admission, Hernia easily reducible, and sympts have decreased +BM no fever no BRB Objective - Vital Signs Date Time Temp Pulse Resp B/P Pulse Ox O2 Delivery O2 Flow Rate FiO2 07/26/16 12:33 88 18 157/88 95 Room Air 07/25/16 20:12 98.2 Result Diagram: 07/26/16 0504 07/26/16 0504 Objective Remarks PE alert Abd - soft, non-tender, hernia reduced no masses A/P Assessment and Plan Imp; Ventral hernia, s/p reduction, could adv diet, dc to home if sera PO RTO consider elective repair hernia He Carlos MD Jul 26, 2016 22:09
[2016-08-14] MEDS ORDERED: NIAC500T5 PO (08:10)
[2016-08-14] MEDS ORDERED: CRANCAP2 PO (08:10)
[2016-08-14] MEDS ORDERED: ZOFR4TAB3 SL (08:43)
== END 2016-07-26 16:00 | disposition home or self-care (01) | DRG 395 ==
LOC: NEPB 20:09 → NEDA 22:05 → NEDH 07-26 05:29
PROVIDERS: ADMIT Internal Medicine; ATTEND Internal Medicine
PROC: 0DS Gastrointestinal System, Reposition (ICD-10-PCS; principal; 2016-07-25)
DX: K42.0 Umbilical hernia with obstruction, without gangrene (principal); N18.3 Chronic kidney disease, stage 3 (moderate); N20.0 Calculus of kidney; I12.9 Hypertensive chronic kidney disease with stage 1 through stage 4 chronic kidney disease, or unspecified chronic kidney disease; E78.5 Hyperlipidemia, unspecified; E03.9 Hypothyroidism, unspecified; M19.90 Unspecified osteoarthritis, unspecified site; E87.6 Hypokalemia; E78.00 Pure hypercholesterolemia, unspecified; H40.9 Unspecified glaucoma
CPT/HCPCS: 74176; 80048; 80053; 80074; 81001; 83690; 85025; 87086; 96361; 96374; 96375; J0696; J2270; J3480; J7030

== ENCOUNTER → 2016-08-14 | Outpatient (CLI) | payer MEDICARE ==
[~2016-08-14] MED LIST changes: -CEPH-460 PO; +CIPR-9 PO; +CRANCAP2 PO; +HYDR-3516 PO; +METR-1 PO; -NIAC500C4; +NIAC500T5 PO
--- NOTE | 2016-08-14 09:06 | RADRPT ---
EXAM DATE/TIME: 08/14/2016 08:54 [facility] COMPARISON: CHEST PA & LAT, November 23, 2014, 12:30. INDICATIONS : Pre-op hernia repair. Evaluate for Pneumonia, Pneumothorax, or communicable diseases. MEDICAL HISTORY : Hepatitis. Bowel obstruction. SURGICAL HISTORY : Cholecystectomy. Appendectomy.Hysterectomy. ENCOUNTER: Initial ACUITY: 1 day PAIN SCORE: 0/10 LOCATION: Bilateral chest FINDINGS: PA and lateral views of the chest demonstrate the lungs to be symmetrically aerated without evidence of mass, infiltrate or effusion. The cardiomediastinal contours are unremarkable. Osseous structure s are intact. CONCLUSION: No acute disease. Skip Arrieta MD on August 14, 2016 at 9:04 Board Certified Radiologist. This report was verified electronically.
[2016-08-14 09:42] LABS: AUTOMATED NEUTROPHIL # 4.1 TH/MM3 (1.8-7.7); BASOPHIL % 0.5 % (0.0-2.0); EOSINOPHIL # 0.1 TH/MM3 (0-0.4); EOSINOPHIL % 2.3 % (0.0-4.0); HEMATOCRIT 41.3 % (35.0-46.0); HEMO FLAGS DIFF FINAL; LYMPH % 21.1 % (9.0-44.0); LYMPHOCYTE # 1.3 TH/MM3 (1.0-4.8); MEAN CELL VOLUME 94.1 FL (80.0-100.0); MEAN CORPUSCULAR HEMOGLOBIN 30.9 PG (27.0-34.0); MEAN CORPUSCULAR HGB CONC 32.8 % (32.0-36.0); MONO % 7.5 % (0.0-8.0); NEUT % 68.6 % (16.0-70.0); PLATELET COUNT 314 TH/MM3 (150-450); RED BLOOD COUNT 4.39 MIL/MM3 (4.00-5.30); RED CELL DISTRIBUTION WIDTH 14.6 % (11.6-17.2)
[2016-08-14 09:53] LABS: INTERNATIONAL NORMALIZED RATIO 0.9 RATIO; PROTHROMBIN TIME - PATIENT 10.4 SEC (9.8-11.6)
[2016-08-14 09:56] LABS: BACTERIA, URINE RARE /hpf; BLOOD, URINE NEG (NEG); GLUCOSE,URINE NEG (NEG); HYALINE CAST, URINE 9 /lpf (RARE); KETONE, URINE NEG (NEG); MUCUS URINE FEW /lpf (OCC); NITRITE,URINE NEG (NEG); SQUAMOUS EPITHELIAL CELL URINE 1 /hpf (0-5); URINE COLOR YELLOW (YELLW/STRAW)
[2016-08-14 09:59] LABS: COMMENT (UR) CULTURE INDICATED; CULTURE IF INDICATED CULTURE INDICATED
[2016-08-14 10:12] LABS: ALT (GPT) 30 U/L (10-53); ANION GAP 6 MEQ/L (5-15); AST (GOT) 24 U/L (15-37); BICARBONATE 29.2 MEQ/L (21.0-32.0); BLOOD UREA NITROGEN 21 MG/DL (7-18); CHLORIDE 108 MEQ/L (98-107); GLOMERULAR FILTRATION RATE 58 ML/MIN (>89); GLUCOSE,FASTING 87 MG/DL (74-99); POTASSIUM 4.5 MEQ/L (3.5-5.1); SODIUM (NA) 143 MEQ/L (136-145)
[2016-08-14 10:14] LABS: ALKALINE PHOSPHATASE 71 U/L (45-117); TOTAL BILIRUBIN ADULT 0.4 MG/DL (0.2-1.0)
--- NOTE | 2016-08-14 17:02 | EKG ---
Date Performed: 08/14/2016 Time Performed: 08:24:23 PTAGE: 71 years EKG: Sinus rhythm MODERATE VOLTAGE CRITERIA FOR LVH, CONSIDER NORMAL VARIANT Since previous tracing, no significant ch tony noted BORDERLINE ECG PREVIOUS TRACING : 05/21/2016 17.28 DOCTOR: Gregorio Sow Interpretating Date/Time 08/14/2016 17:01:02
== END ==
LOC: CPRE 07:50
PROVIDERS: ATTEND Colon & Rectal Surgery
DX: Z01.810 Encounter for preprocedural cardiovascular examination (principal); Z01.811 Encounter for preprocedural respiratory examination; Z01.812 Encounter for preprocedural laboratory examination; Z79.01 Long term (current) use of anticoagulants; K43.9 Ventral hernia without obstruction or gangrene
CPT/HCPCS: 36415; 71020; 80053; 81001; 85025; 85610; 85730; 87086; 93005

== ENCOUNTER 2016-08-20 11:57 | Inpatient (IN) | payer MEDICARE ==
[~2016-08-20] VITALS: Ht 165.1 cm; Wt 79.1 kg
[~2016-08-20 11:57] MED LIST changes: -CIPR-9 PO; -HYDR-3516 PO; -METR-1 PO
[2016-08-20] MEDS ORDERED: ONDANSETRON HCL 4 MG/2 ML VIAL IV PUSH ONE (12:00)
[2016-08-20] MEDS ORDERED: PROPOFOL 200 MG/20 ML AMP IV ONE (12:00)
[2016-08-20] MEDS ORDERED: LACTATED RINGER'S 1000 ML INJ 1,000 ML IV ONE (12:00)
[2016-08-20] MEDS ORDERED: NEOSTIGMINE 3 MG/3 ML SYR IV ONE (12:00)
[2016-08-20] MEDS ORDERED: SODIUM CHLORID 0.9% 500 ML IV SCH (12:30)
[2016-08-20] MEDS ORDERED: LACTATED RINGER'S 1000 ML IV SCH (12:30)
[2016-08-20] MEDS ORDERED: METOPROLOL TARTRATE 25 MG TAB PO PRN (12:30)
[2016-08-20] MEDS ORDERED: INSULIN HUMAN REGULAR 1,000 UNITS/10 ML VIAL SQ PRN (12:30)
[2016-08-20 12:48] VITALS: BP 154/84; PULSE 77; RESP 20; TEMP 98.9; O2SAT 98
[2016-08-20] MEDS ORDERED: FAMOTIDINE 20 MG/2 ML VIAL ONE (13:51)
[2016-08-20] MEDS ORDERED: DEXAMETHASONE SOD PHOS 4 MG/ML VIAL ONE (13:51)
[2016-08-20] MEDS ORDERED: LIDOCAINE 1%/EPINEPHrine 1:100,000 SOLN 30 ML VIAL ONE (13:52)
[2016-08-20] MEDS ORDERED: BUPIVACAINE/EPINEPHRINE 0.5% PF 30 ML VIAL ONE (13:53)
[2016-08-20] MEDS ORDERED: MIDAZOLAM HCL 2 MG/2 ML VIAL ONE (13:58)
--- NOTE | 2016-08-20 14:00 | PD.HP.UP ---
H&P Update Note The Pre-Admit History and Physical Examination regarding the above named patient was reviewed (including, but not limited to, vital signs, heart, lungs, co-morbid conditions), and upon re-examination it is noted that: the patient's condition has not significantly changed since the last examination. He Carlos MD Aug 20, 2016 14:00
[2016-08-20] MEDS ORDERED: ceFAZolin 2 GM PREMIX 50 ML ONE (14:13)
[2016-08-20] MEDS ORDERED: ACETAMINOPHEN 1000 MG/100 ML VIAL IV ONE (15:37)
--- NOTE | 2016-08-20 15:37 | HHI.PR ---
Immediate Post Op Note Procedure Date: Aug 20, 2016 Pre Op Diagnosis: Ventral Hernia Post Op Diagnosis: Same Surgeon: He Carlos Structural Fitter(s): None Procedure: Exploratory Laparotomy + repair ventral hernias/ mesh insertion Findings: Multiple ventral hernias, with omentum/SB in sac Complications: None Specimen(s) removed: sac Estimated blood loss: min Anesthesia: General Drains: None IVF Patient to: PACU Patient Condition: Good He Carlos MD Aug 20, 2016 15:37
[2016-08-20] MEDS ORDERED: ENALAPRILAT 2.5 MG/2 ML VIAL IV PRN (15:45)
[2016-08-20] MEDS ORDERED: MORPHINE SULFATE 30 MG/30 ML PCA IV SCH (15:45)
[2016-08-20] MEDS ORDERED: BENZOCAINE 6 MG/MENTHOL 10 MG LOZENGE SUCK-ON PRN (15:45)
[2016-08-20] MEDS ORDERED: POTASSIUM CHLOR 20 MEQ PREMIX 100 ML IV PRN (15:45)
[2016-08-20] MEDS ORDERED: ONDANSETRON ODT 4 MG TAB SL PRN (15:45)
[2016-08-20] MEDS ORDERED: ACETAMINOPHEN/HYDROcodone 325 MG/5 MG TAB PO PRN ×2 (15:45)
[2016-08-20] MEDS ORDERED: ONDANSETRON HCL 4 MG/2 ML VIAL IV PRN (15:45)
[2016-08-20] MEDS ORDERED: ENALAPRILAT 1.25 MG/ML VIAL IV PRN (15:45)
[2016-08-20] MEDS ORDERED: ACETAMINOPHEN 325 MG TAB PO PRN (15:45)
[2016-08-20] MEDS ORDERED: ALENDRONATE SODIUM 70 MG TAB PO SCH (15:45)
[2016-08-20] MEDS ORDERED: SODIUM CHLORIDE 0.9% FLUSH 5 ML FLUSH IVF PRN (15:45)
[2016-08-20] MEDS ORDERED: NALOXONE HCL 0.4 MG/ML AMP IV PRN (15:45)
[2016-08-20] MEDS ORDERED: POTASSIUM CHLOR 40 MEQ PREMIX 100 ML IV PRN (15:45)
[2016-08-20] MEDS ORDERED: DO NOT ADM ANY ANTICOAGULANT DRUGS XX PRN (15:59)
[2016-08-20] MEDS ORDERED: Post-op Orders (for Pharmacy) MISC XX ONE (16:00)
[2016-08-20] MEDS: D5-NS + KCL 20 MEQ INJ 1,000 ML IV SCH ×2 (16:02→22:09)
[2016-08-20] MEDS ORDERED: MORPHINE SULFATE 4 MG/ML INJ ONE (16:15)
[2016-08-20] MEDS ORDERED: fentaNYL CITRATE 250 MCG/5 ML AMP ONE (16:15)
[2016-08-20] MEDS ORDERED: *LABETALOL HCL 100 MG/20 ML VIAL PERIprocedural Use ONLY ONE (16:18)
[2016-08-20] MEDS ORDERED: *morphine SULFATE 8 MG/ML PERIprocedure ONLY ONE ×3 (16:18→17:01)
[2016-08-20] MEDS: KETOROLAC TROMETHAMINE 30 MG/ML (IVP) VIAL IVP PRN (16:45)
[2016-08-20] MEDS: SODIUM CHLORIDE 0.9% FLUSH 5 ML FLUSH IVF SCH (20:22)
[2016-08-20] MEDS: LISINOPRIL 20 MG TAB PO SCH (20:34)
[2016-08-20] MEDS: METOCLOPRAMIDE HCL 10 MG/2 ML VIAL IVS SCH (20:34)
[2016-08-20] MEDS: METOPROLOL TARTRATE 50 MG TAB PO SCH (20:34)
[2016-08-20] MEDS: PCA - TOTAL MG MORPHINE DELIVERED PER SHIFT SCH (22:00)
[2016-08-20 22:25] VITALS: BP 127/60; PULSE 76; RESP 18; TEMP 96.6; O2SAT 95
[2016-08-21] VITALS (8 sets, daily range): BP systolic 130–182; BP diastolic 66–84; PULSE 67–77; RESP 16–20; TEMP 96.3–98.1; O2SAT 91–98
[2016-08-21] MEDS: PCA - TOTAL MG MORPHINE DELIVERED PER SHIFT SCH (05:38)
[2016-08-21] MEDS: D5-NS + KCL 20 MEQ INJ 1,000 ML IV SCH (05:40)
[2016-08-21] MEDS: LISINOPRIL 20 MG TAB PO SCH (08:43)
[2016-08-21] MEDS: METOPROLOL TARTRATE 50 MG TAB PO SCH (08:44)
[2016-08-21] MEDS: METOCLOPRAMIDE HCL 10 MG/2 ML VIAL IVS SCH (08:48)
[2016-08-21] MEDS: SODIUM CHLORIDE 0.9% FLUSH 5 ML FLUSH IVF SCH (08:48)
[2016-08-21] MEDS ORDERED: OXYBUTYNIN CHLORIDE 5 MG TAB PO SCH (09:00)
[2016-08-21] MEDS ORDERED: PRAVASTATIN SOD 20 MG TAB PO SCH (09:00)
[2016-08-21] MEDS ORDERED: ALVIMOPAN 12 MG CAPSULE PO SCH (09:00)
[2016-08-21] MEDS ORDERED: PANTOPRAZOLE SODIUM 40 MG VIAL IVP SCH (09:00)
[2016-08-21] MEDS ORDERED: LEVOTHYROXINE SODIUM 125 MCG TAB PO SCH (09:00)
[2016-08-21] MEDS ORDERED: PANTOPRAZOLE SOD 40 MG DELAYED RELEASE TAB PO SCH (09:00)
[2016-08-21 09:57] LABS: AUTOMATED NEUTROPHIL # 11.8 TH/MM3 (1.8-7.7); BASOPHIL # 0.1 TH/MM3 (0-0.2); BASOPHIL % 0.7 % (0.0-2.0); EOSINOPHIL % 0.3 % (0.0-4.0); HEMATOCRIT 40.4 % (35.0-46.0); HEMO FLAGS DIFF FINAL; LYMPH % 8.7 % (9.0-44.0); LYMPHOCYTE # 1.2 TH/MM3 (1.0-4.8); MEAN CELL VOLUME 94.3 FL (80.0-100.0); MEAN CORPUSCULAR HEMOGLOBIN 30.5 PG (27.0-34.0); MEAN CORPUSCULAR HGB CONC 32.3 % (32.0-36.0); MONO % 7.3 % (0.0-8.0); PLATELET COUNT 297 TH/MM3 (150-450); RED BLOOD COUNT 4.28 MIL/MM3 (4.00-5.30); RED CELL DISTRIBUTION WIDTH 14.4 % (11.6-17.2); WHITE BLOOD COUNT 14.2 TH/MM3 (4.0-11.0)
[2016-08-21 10:16] LABS: BICARBONATE 25.3 MEQ/L (21.0-32.0); POTASSIUM 3.9 MEQ/L (3.5-5.1)
[2016-08-21] MEDS: KETOROLAC TROMETHAMINE 30 MG/ML (IVP) VIAL IVP PRN (16:21)
[2016-08-21] MEDS ORDERED: HYDR-3516 PO (17:08)
[2016-08-21] MEDS ORDERED: FUROSEMIDE 20 MG/2 ML VIAL IV PUSH ONE (17:15)
--- NOTE | 2016-08-21 20:31 | HHI.PR ---
Subjective Remarks C/R Surg POD afebrile, VSS UO adeq sera PO Objective - Vital Signs Date Time Temp Pulse Resp B/P Pulse Ox O2 Delivery O2 Flow Rate FiO2 08/21/16 17:18 98.1 69 19 182/84 91 08/21/16 15:46 21 08/21/16 11:35 Nasal Cannula 2.00 Result Diagram: 08/21/16 0945 08/21/16 0945 Objective Remarks PE alert Abd - soft, wound clean, min tympany A/P Assessment and Plan Imp: stable post-op OOB adv diet dc IVF dc plans if sera PO He Carlos MD Aug 21, 2016 20:31
--- NOTE | 2016-08-22 08:26 | MP ---
cc: SENIA CARDOZA M.D. DATE OF SURGERY 08/20/2016 PREOPERATIVE DIAGNOSIS Multiple ventral hernias. PROCEDURE Exploratory laparotomy with repair of multiple ventral hernias, insertion of mesh. POSTOPERATIVE DIAGNOSIS Multiple ventral hernias. SURGEON Dr. Cardoza PROCEDURE The patient was placed in the supine position. After adequate general anesthesia, her abdomen was prepped with Betadine solution and draped in the usual sterile fashion. Initially, the previous midline incision was opened entering a hernia sac in the subcu tissue. The hernia sac was dissected free from the subcu tissue and the neck of the sac identified. There appeared to be two or tree hernias in the midline with some attenuated fascia above and below. The hernia sacs were then opened and the sac removed from the fascial margins. The fascia and muscle were pretty good after opening of the sac and connecting all the hernias together. Some attenuated fascia was debrided. Exploration of the abdomen revealed some loops of bowel which were stuck to the parietal peritoneum. These were dissected off and returned to the abdominal cavity. No sign of any bowel obstruction or major adhesions were noted. The omentum was dissected off the abdominal wall and laid on top of the small bowel. Next, after further defining the hernia defect, the midline fascia was reapproximated using a running #1 PDS suture putting a piece of Marlex mesh inside against the parietal peritoneum and incorporating the mesh into the midline closure. At completion, the hernia repair closure appeared to be intact and there was very little tension on the fascia. The subcu tissues were irrigated copiously and the skin closed with one layer interrupted subcu Vicryl and a running subcuticular Vicryl to close the skin. The wound area washed with normal saline and dried, sterile dressing of Telfa and gauze applied. The patient tolerated the procedure quite well and was brought to recovery room in stable condition. Sponge and needle counts were correct at the end of the procedure. MD FERMIN Herman/MELIA /8:25 PM /8:21 AM
== END 2016-08-21 19:29 | disposition home or self-care (01) | DRG 355 ==
LOC: HSDC 11:57 → HSDI 15:34 → N07B 21:32
PROVIDERS: ADMIT Colon & Rectal Surgery; ATTEND Colon & Rectal Surgery
PROC: 0WUF0JZ Supplement Abdominal Wall with Synthetic Substitute, Open Approach (ICD-10-PCS; principal; 2016-08-20 14:06)
DX: K43.9 Ventral hernia without obstruction or gangrene (principal); I10 Essential (primary) hypertension; E03.9 Hypothyroidism, unspecified
CPT/HCPCS: 80048; 85025; 86850; 86900; 86901; 94150; C1781; J0131; J0690; J1100; J1885; J1940; J2250; J2270; J2405; J2710; J2765; J3010; J3480; J7120

== ENCOUNTER → 2017-07-30 | Outpatient (CLI) | payer MEDICARE ==
[~2017-07-30] MED LIST changes: +ASPI81TA23 PO; -CO Q200C PO; +COQ1200C3 PO; +HYDR-3516 PO; +HYDR-3799 PO; +MULT1TAB61 PO; -OXYB5TAB10 PO; +OXYB5TAB8 PO
--- NOTE | 2017-07-30 09:53 | RADRPT ---
EXAM DATE/TIME: 07/30/2017 09:06 [facility] COMPARISON: CHEST PA & LAT, August 14, 2016, 8:54. INDICATIONS : Pre-op repair ventral hernia. Evaluate for pneumonia, pneumothorax, and communicable diaeases. MEDICAL HISTORY : Hepatitis. Bowel obstruction. SURGICAL HISTORY : Cholecystectomy. Appendectomy.Hysterectomy. ENCOUNTER: Initial ACUITY: 1 day PAIN SCORE: 0/10 LOCATION: Bilateral chest FINDINGS: The cardiac silhouette is enlarged in transverse diameter. The lungs are free of acute parenchymal op acity. No effusions are identified. CONCLUSION: 1. Cardiomegaly. No acute pulmonary disease. Sukhdev Iyer MD on July 30, 2017 at 9:50 Board Certified Radiologist. This report was verified electronically.
[2017-07-30 09:57] LABS: AUTOMATED NEUTROPHIL # 6.6 TH/MM3 (1.8-7.7); BASOPHIL % 0.5 % (0.0-2.0); EOSINOPHIL # 0.2 TH/MM3 (0-0.4); EOSINOPHIL % 1.9 % (0.0-4.0); HEMATOCRIT 41.1 % (35.0-46.0); HEMOGLOBIN 13.7 GM/DL (11.6-15.3); LYMPH % 12.7 % (9.0-44.0); LYMPHOCYTE # 1.1 TH/MM3 (1.0-4.8); MEAN CELL VOLUME 94.5 FL (80.0-100.0); MEAN CORPUSCULAR HEMOGLOBIN 31.6 PG (27.0-34.0); MEAN CORPUSCULAR HGB CONC 33.4 % (32.0-36.0); MEAN PLATELET VOLUME 9.3 FL (7.0-11.0); MONOCYTE # 0.6 TH/MM3 (0-0.9); NEUT % 77.9 % (16.0-70.0); PLATELET COUNT 350 TH/MM3 (150-450); RED BLOOD COUNT 4.34 MIL/MM3 (4.00-5.30); RED CELL DISTRIBUTION WIDTH 13.9 % (11.6-17.2); WHITE BLOOD COUNT 8.5 TH/MM3 (4.0-11.0)
[2017-07-30 10:03] LABS: BACTERIA, URINE RARE /hpf; BILIRUBIN, URINE NEG (NEG); BLOOD, URINE NEG (NEG); GLUCOSE,URINE NEG (NEG); HYALINE CAST, URINE 1 /lpf (RARE); KETONE, URINE NEG (NEG); MUCUS URINE FEW /lpf (OCC); NITRITE,URINE NEG (NEG); SQUAMOUS EPITHELIAL CELL URINE 1 /hpf (0-5); TRANSITIONAL EPI CELLS, URINE <1 /hpf; URINE COLOR YELLOW (YELLW/STRAW); URINE LEUKOCYTE ESTERASE LARGE (NEG)
[2017-07-30 10:27] LABS: ALBUMIN 3.9 GM/DL (3.4-5.0); AST (GOT) 27 U/L (15-37); BICARBONATE 31.1 MEQ/L (21.0-32.0); BLOOD UREA NITROGEN 19 MG/DL (7-18); CHLORIDE 105 MEQ/L (98-107); CREATININE 0.96 MG/DL (0.50-1.00); GLOMERULAR FILTRATION RATE 57 ML/MIN (>89); GLUCOSE,FASTING 87 MG/DL (74-99); SODIUM (NA) 141 MEQ/L (136-145)
[2017-07-30 10:30] LABS: ALKALINE PHOSPHATASE 89 U/L (45-117); ALT (GPT) 30 U/L (10-53); TOTAL BILIRUBIN ADULT 0.3 MG/DL (0.2-1.0); TOTAL PROTEIN 7.6 GM/DL (6.4-8.2)
--- NOTE | 2017-07-30 16:10 | EKG ---
Date Performed: 07/30/2017 Time Performed: 08:22:51 PTAGE: 72 years EKG: SINUS BRADYCARDIA POSSIBLE LEFT ATRIAL ENLARGEMENT BORDERLINE ECG Since the prior tracing, there has been no significant change NO PREVIOUS TRACING DOCTOR: Ferdy Perez Interpretating Date/Time 07/30/2017 16:08:23
== END ==
LOC: CPRE 08:00
PROVIDERS: ATTEND Colon & Rectal Surgery
DX: Z01.812 Encounter for preprocedural laboratory examination (principal); Z01.811 Encounter for preprocedural respiratory examination; Z01.810 Encounter for preprocedural cardiovascular examination
CPT/HCPCS: 36415; 71046; 80053; 81001; 85025; 93005

== ENCOUNTER 2017-08-06 11:52 | Inpatient (IN) | payer MEDICARE ==
[~2017-08-06] VITALS: Ht 165.1 cm; Wt 87.5 kg
[~2017-08-06 11:52] MED LIST changes: -ASPI1TAB69 PO; -HYDR-3516 PO; -MULTCAP13 PO; -ZOFR4TAB3 SL
[2017-08-06] MEDS ORDERED: ROCURONIUM INJ 50 MG/5 ML SYRINGE IV PUSH ONE (12:00)
[2017-08-06] MEDS ORDERED: GLYCOPYRROLATE 1 MG/5 ML SYRINGE IV PUSH ONE (12:00)
[2017-08-06] MEDS ORDERED: PROPOFOL 200 MG/20 ML AMP IV ONE (12:00)
[2017-08-06] MEDS ORDERED: LACTATED RINGER'S 1000 ML INJ 1,000 ML IV ONE (12:00)
[2017-08-06] MEDS ORDERED: LIDOCAINE HCL 1% PF 5 ML SYRINGE OTHER ONE (12:00)
[2017-08-06] MEDS ORDERED: ONDANSETRON HCL 4 MG/2 ML VIAL IV ONE (12:00)
[2017-08-06] MEDS ORDERED: NEOSTIGMINE 5 MG/5 ML SYRINGE IV PUSH ONE (12:00)
--- NOTE | 2017-08-06 12:09 | PD.HP.UP ---
H&P Update Note The Pre-Admit History and Physical Examination regarding the above named patient was reviewed (including, but not limited to, vital signs, heart, lungs, co-morbid conditions), and upon re-examination it is noted that: the patient's condition has not significantly changed since the last examination. He Carlos MD Aug 06, 2017 12:09
[2017-08-06] MEDS: LACTATED RINGER'S 1000 ML IV PRN (12:30)
[2017-08-06] MEDS ORDERED: INSULIN HUMAN REGULAR 1,000 UNITS/10 ML VIAL SQ PRN (12:45)
[2017-08-06] MEDS ORDERED: POVIDONE IODINE 5% (ANTISEPSIS KIT) 4 APPLICATIONS EACH NARE PRN (12:45)
[2017-08-06] MEDS ORDERED: SODIUM CHLORID 0.9% 500 ML IV PRN (12:45)
[2017-08-06] MEDS ORDERED: METOPROLOL TARTRATE 25 MG TAB PO PRN (12:45)
[2017-08-06] MEDS ORDERED: CHLORHEXIDINE GLUCONATE 2 % 1 PACK (2 CLOTHS) TOPICAL PRN (12:45)
[2017-08-06] MEDS ORDERED: BUPIVACAINE/EPINEPHRINE 0.5% PF 30 ML VIAL ONE (13:37)
[2017-08-06] MEDS ORDERED: LIDOCAINE 1%/EPINEPHrine 1:100,000 SOLN 50 ML VIAL ONE (13:37)
[2017-08-06] MEDS ORDERED: ACETAMINOPHEN 1000 MG/100 ML 100 ML IV ONE (13:53)
[2017-08-06] MEDS ORDERED: metroNIDAZOLE 500 MG INJ 100 ML IV ONE (14:00)
[2017-08-06] MEDS ORDERED: ceFAZolin 2 GM PREMIX 50 ML ONE (14:00)
[2017-08-06] MEDS ORDERED: ACETAMINOPHEN 325 MG TAB PO PRN (16:00)
[2017-08-06] MEDS ORDERED: NALOXONE HCL 0.4 MG/ML AMP IV PUSH PRN (16:00)
[2017-08-06] MEDS: D5-NS + KCL 20 MEQ INJ 1,000 ML IV SCH ×2 (16:00→22:33)
[2017-08-06] MEDS ORDERED: DO NOT ADM ANY ANTICOAGULANT DRUGS PRN (16:15)
[2017-08-06] MEDS ORDERED: MORPHINE SULFATE 4 MG/ML INJ ONE (16:29)
[2017-08-06] MEDS ORDERED: MIDAZOLAM HCL 2 MG/2 ML VIAL ONE (16:29)
[2017-08-06] MEDS ORDERED: *morphine SULFATE 10 MG/ML PERIprocedure ONLY ONE (16:42)
[2017-08-06] MEDS ORDERED: POTASSIUM CHLOR 40 MEQ PREMIX 100 ML IV PRN (17:00)
[2017-08-06] MEDS ORDERED: POTASSIUM CHLOR 20 MEQ PREMIX 100 ML IV PRN (17:00)
[2017-08-06] MEDS ORDERED: Post-op Orders (for Pharmacy) XX ONE (18:00)
[2017-08-06] MEDS ORDERED: BENZOCAINE 6 MG/MENTHOL 10 MG LOZENGE BUCCAL PRN (19:00)
[2017-08-06] MEDS ORDERED: KETOROLAC TROMETHAMINE 30 MG/ML (IVP) VIAL IVP PRN (19:00)
[2017-08-06] MEDS ORDERED: ACETAMINOPHEN/HYDROcodone 325 MG/5 MG TAB PO PRN (19:00)
[2017-08-06] MEDS ORDERED: MORPHINE SULFATE 30 MG/30 ML PCA IV SCH (20:00)
[2017-08-06 20:28] VITALS: BP 183/71; PULSE 85; RESP 16; TEMP 97.9; O2SAT 95
[2017-08-06] MEDS: PCA - TOTAL MG MORPHINE DELIVERED PER SHIFT SCH (22:00)
[2017-08-06] MEDS: METOCLOPRAMIDE HCL 10 MG/2 ML VIAL IVS SCH (22:25)
[2017-08-06] MEDS: metroNIDAZOLE 500 MG INJ 100 ML IV SCH (22:27)
[2017-08-07] VITALS (8 sets, daily range): BP systolic 144–177; BP diastolic 73–86; PULSE 79–104; RESP 16–20; TEMP 96.9–99.7; O2SAT 92–95
[2017-08-07] MEDS: PCA - TOTAL MG MORPHINE DELIVERED PER SHIFT SCH ×3 (06:00→20:48)
[2017-08-07] MEDS: metroNIDAZOLE 500 MG INJ 100 ML IV SCH ×2 (06:22→15:58)
[2017-08-07] MEDS: ENALAPRILAT 1.25 MG/ML VIAL IV PUSH PRN ×2 (06:24→20:59)
[2017-08-07] MEDS: ONDANSETRON HCL 4 MG/2 ML VIAL IV PUSH PRN ×2 (06:24→18:04)
[2017-08-07] MEDS: D5-NS + KCL 20 MEQ INJ 1,000 ML IV SCH ×2 (06:34→20:46)
[2017-08-07] MEDS: PANTOPRAZOLE SOD 40 MG DELAYED RELEASE TAB PO SCH (08:56)
[2017-08-07] MEDS: METOCLOPRAMIDE HCL 10 MG/2 ML VIAL IVS SCH ×2 (08:56→20:38)
[2017-08-07] MEDS ORDERED: PANTOPRAZOLE SODIUM 40 MG VIAL IVP PRN (09:00)
[2017-08-07 10:12] LABS: BASOPHIL # 0.1 TH/MM3 (0-0.2); BASOPHIL % 0.3 % (0.0-2.0); HEMATOCRIT 41.4 % (35.0-46.0); HEMOGLOBIN 13.9 GM/DL (11.6-15.3); LYMPH % 6.7 % (9.0-44.0); LYMPHOCYTE # 1.1 TH/MM3 (1.0-4.8); MEAN CELL VOLUME 94.2 FL (80.0-100.0); MEAN CORPUSCULAR HEMOGLOBIN 31.6 PG (27.0-34.0); MEAN CORPUSCULAR HGB CONC 33.5 % (32.0-36.0); MEAN PLATELET VOLUME 9.4 FL (7.0-11.0); MONO % 7.8 % (0.0-8.0); MONOCYTE # 1.3 TH/MM3 (0-0.9); NEUT % 85.2 % (16.0-70.0); PLATELET COUNT 326 TH/MM3 (150-450); RED CELL DISTRIBUTION WIDTH 14.3 % (11.6-17.2); WHITE BLOOD COUNT 16.4 TH/MM3 (4.0-11.0)
[2017-08-07 10:49] LABS: BICARBONATE 29.6 MEQ/L (21.0-32.0); CALCIUM 8.1 MG/DL (8.5-10.1); CREATININE 0.79 MG/DL (0.50-1.00)
[2017-08-07] MEDS: LACTATED RINGER'S 1000 ML IV PRN (20:09)
[2017-08-07] MEDS: ACETAMINOPHEN/HYDROcodone 325 MG/5 MG TAB PO PRN (20:45)
[2017-08-07] MEDS: ALVIMOPAN 12 MG CAPSULE PO SCH (20:45)
[2017-08-08] VITALS (7 sets, daily range): BP systolic 160–195; BP diastolic 78–86; PULSE 87–96; RESP 18; TEMP 97.8–99.8; O2SAT 92–94
[2017-08-08] MEDS: ACETAMINOPHEN/HYDROcodone 325 MG/5 MG TAB PO PRN ×2 (04:47→20:41)
[2017-08-08] MEDS: PCA - TOTAL MG MORPHINE DELIVERED PER SHIFT SCH (04:48)
[2017-08-08] MEDS: D5-NS + KCL 20 MEQ INJ 1,000 ML IV SCH ×2 (04:48→14:24)
[2017-08-08] MEDS ORDERED: HYDR-3516 PO (07:54)
[2017-08-08] MEDS ORDERED: METOCLOPRAMIDE HCL 10 MG/2 ML VIAL IVS PRN (08:00)
[2017-08-08 08:14] LABS: AUTOMATED NEUTROPHIL # 13.9 TH/MM3 (1.8-7.7); BASOPHIL # 0.1 TH/MM3 (0-0.2); BASOPHIL % 0.3 % (0.0-2.0); HEMATOCRIT 38.3 % (35.0-46.0); HEMOGLOBIN 12.7 GM/DL (11.6-15.3); LYMPH % 2.9 % (9.0-44.0); LYMPHOCYTE # 0.4 TH/MM3 (1.0-4.8); MEAN CELL VOLUME 93.7 FL (80.0-100.0); MEAN CORPUSCULAR HGB CONC 33.1 % (32.0-36.0); MEAN PLATELET VOLUME 10.1 FL (7.0-11.0); MONO % 7.9 % (0.0-8.0); MONOCYTE # 1.2 TH/MM3 (0-0.9); NEUT % 88.9 % (16.0-70.0); PLATELET COUNT 280 TH/MM3 (150-450); RED BLOOD COUNT 4.09 MIL/MM3 (4.00-5.30); RED CELL DISTRIBUTION WIDTH 14.1 % (11.6-17.2); WHITE BLOOD COUNT 15.6 TH/MM3 (4.0-11.0)
[2017-08-08 08:45] LABS: BICARBONATE 25.9 MEQ/L (21.0-32.0); CALCIUM 8.4 MG/DL (8.5-10.1); CREATININE 0.72 MG/DL (0.50-1.00)
[2017-08-08] MEDS: hydrALAZINE HCL 50 MG TAB PO SCH ×3 (08:57→18:42)
[2017-08-08] MEDS: PRAVASTATIN SOD 40 MG TAB PO SCH (08:57)
[2017-08-08] MEDS: METOPROLOL TARTRATE 50 MG TAB PO SCH ×2 (08:57→20:42)
[2017-08-08] MEDS: LISINOPRIL 20 MG TAB PO SCH ×2 (08:57→20:42)
[2017-08-08] MEDS: ALVIMOPAN 12 MG CAPSULE PO SCH ×2 (08:57→20:42)
[2017-08-08] MEDS: PANTOPRAZOLE SOD 40 MG DELAYED RELEASE TAB PO SCH (08:57)
[2017-08-08] MEDS: OXYBUTYNIN CHLORIDE 5 MG TAB PO SCH (08:58)
[2017-08-08] MEDS: FUROSEMIDE 20 MG/2 ML VIAL IV PUSH SCH ×2 (08:59→20:44)
[2017-08-08] MEDS: LEVOTHYROXINE SODIUM 125 MCG TAB PO SCH (09:05)
--- NOTE | 2017-08-08 10:03 | MP ---
cc: SENIA CARDOZA M.D. DATE OF SURGERY: 08/06/2017 PREOPERATIVE DIAGNOSIS Recurrent ventral hernias. PROCEDURE Exploratory laparotomy with repair of multiple ventral hernias, removal of mesh and insertion of Marlex mesh. POSTOPERATIVE DIAGNOSIS Multiple ventral hernias. SURGEON Dr. Cardoza. ASSESSMENT Dr. Alexander Ledesma. PROCEDURE The patient was placed in the supine position. After adequate general anesthesia, her abdomen was prepped with Betadine solution and draped in the usual sterile fashion. With Dr. Ledesma's assistance, the previous midline incision was opened, entering the hernia sac pretty readily in the lower abdomen. The sac was dissected free from the subcutaneous tissues. When the neck of the sac was further defined, the sac was opened, taking down small bowel contents from the sac, returning into the abdominal cavity. There were quite a few adhesions within the abdomen with several interloop hernias. These were all opened up and freed. No discrete point of obstruction was noted. The previous hernia repair included mesh and the mesh appeared to be quite adherent to the loops of small bowel. These were tediously dissected off of the mesh and the mesh removed from its remaining fascial attachments. There did appear to be a hernia above the mesh as well. Therefore, the incision was extended cephalad to include the hernia defect. After removing some of the attenuated fascia from the midline. lateral flaps were raised on both sides to gain mobility for the new hernia repair. This did give adequate relaxation of the abdominal musculature for primary repair. The midline was therefore closed using a running #1 PDS suture to reapproximate the midline fascia. The subcutaneous tissues were irrigated copiously. A piece of Marlex mesh was cut to appropriate size, sutured to the anterior rectus fascia to cover the repair using running Prolene suture around the circumference of the mesh. Several tacking sutures were also placed along the midline. The wound was then irrigated copiously with normal saline. Adequate hemostasis achieved. Mainor-Ambriz drains were placed into the subcutaneous tissues on both sides and brought out through stab wounds on either side of the midline incision, secured to the skin with a nylon suture. The midline subcutaneous tissue closed with interrupted Vicryl sutures and the skin closed with a running subcuticular Vicryl suture. Wound area washed with normal saline and dried, sterile dressing of Telfa and gauze applied. The patient tolerated the procedure quite well and was brought to the recovery room in stable condition. Sponge and needle counts were correct at the end of the procedure. MD FERMIN Herman/EMMANUEL /11:15 PM /9:34 AM
--- NOTE | 2017-08-08 12:26 | HHI.PR ---
Subjective Remarks C/R Surg POD #2 afebrile, VSS inc appet +flatus Objective - Vital Signs Date Time Temp Pulse Resp B/P (MAP) Pulse Ox O2 Delivery O2 Flow Rate FiO2 08/08/17 04:00 99.6 96 18 178/79 (112) 94 08/07/17 09:30 Nasal Cannula 2.00 Result Diagram: 08/08/17 0633 08/08/17 0633 Objective Remarks PE alert Abd - softer, wound dry, JULIAN min A/P Assessment and Plan Imp: adv diet dc drains cont binder dc plans He Carlos MD Aug 08, 2017 12:26
[2017-08-08] MEDS: ENALAPRILAT 1.25 MG/ML VIAL IV PUSH PRN ×2 (14:37→22:41)
[2017-08-08] MEDS: ONDANSETRON HCL 4 MG/2 ML VIAL IV PUSH PRN (22:15)
[2017-08-09] VITALS: BP 171/85; PULSE 97; RESP 18; TEMP 98.2; O2SAT 92
[2017-08-09] MEDS: ENALAPRILAT 2.5 MG/2 ML VIAL IV PUSH PRN ×2 (01:31→16:25)
[2017-08-09] MEDS: D5-NS + KCL 20 MEQ INJ 1,000 ML IV SCH ×2 (02:54→15:24)
[2017-08-09 04:00] VITALS: BP 177/83; PULSE 87; RESP 18; TEMP 98.4; O2SAT 90
[2017-08-09] MEDS: LEVOTHYROXINE SODIUM 125 MCG TAB PO SCH (05:45)
[2017-08-09 08:00] VITALS: BP 175/91; PULSE 82; RESP 16; TEMP 98.1; O2SAT 92
[2017-08-09] MEDS: OXYBUTYNIN CHLORIDE 5 MG TAB PO SCH (08:45)
[2017-08-09] MEDS: PRAVASTATIN SOD 40 MG TAB PO SCH (08:45)
[2017-08-09] MEDS: ALVIMOPAN 12 MG CAPSULE PO SCH ×2 (08:45→21:35)
[2017-08-09] MEDS: METOPROLOL TARTRATE 50 MG TAB PO SCH ×2 (08:45→21:35)
[2017-08-09] MEDS: hydrALAZINE HCL 50 MG TAB PO SCH ×3 (08:45→17:24)
[2017-08-09] MEDS: PANTOPRAZOLE SOD 40 MG DELAYED RELEASE TAB PO SCH (08:45)
[2017-08-09] MEDS: FUROSEMIDE 20 MG/2 ML VIAL IV PUSH SCH ×2 (08:46→21:35)
[2017-08-09] MEDS: LISINOPRIL 20 MG TAB PO SCH ×2 (08:46→21:35)
[2017-08-09 12:00] VITALS: BP 164/82; PULSE 73; RESP 18; TEMP 99; O2SAT 92
[2017-08-09 16:00] VITALS: BP 173/81; PULSE 82; RESP 16; TEMP 99.4; O2SAT 92
[2017-08-09] MEDS: ACETAMINOPHEN/HYDROcodone 325 MG/5 MG TAB PO PRN ×2 (17:23→21:36)
[2017-08-09 20:00] VITALS: BP 170/88; PULSE 78; RESP 20; TEMP 98.8; O2SAT 91
--- NOTE | 2017-08-09 23:01 | HHI.PR ---
Subjective Remarks C/R Surg POD #3 afebrile, VSS inc appet +flatus Objective - Vital Signs Date Time Temp Pulse Resp B/P (MAP) Pulse Ox O2 Delivery O2 Flow Rate FiO2 08/09/17 20:00 98.8 78 20 170/88 (115) 91 08/07/17 09:30 Nasal Cannula 2.00 Result Diagram: 08/08/17 0633 08/08/17 0633 Objective Remarks PE alert Abd - softer, wound dry, ?fluct abd wound A/P Assessment and Plan Imp: adv diet dc drains cont binder dc plans He Carlos MD Aug 09, 2017 23:01
[2017-08-09] MEDS: BISACODYL 10 MG SUPP RECTAL SCH (23:12)
[2017-08-10] VITALS: BP 157/82; PULSE 74; RESP 20; TEMP 98.1; O2SAT 90
[2017-08-10] MEDS: D5-NS + KCL 20 MEQ INJ 1,000 ML IV SCH (02:06)
[2017-08-10] MEDS: LEVOTHYROXINE SODIUM 125 MCG TAB PO SCH (06:52)
[2017-08-10 08:00] VITALS: BP 168/81; PULSE 71; RESP 17; TEMP 98.2; O2SAT 92
[2017-08-10] MEDS: BISACODYL 10 MG SUPP RECTAL SCH (09:07)
[2017-08-10] MEDS: OXYBUTYNIN CHLORIDE 5 MG TAB PO SCH (09:08)
[2017-08-10] MEDS: PANTOPRAZOLE SOD 40 MG DELAYED RELEASE TAB PO SCH (09:08)
[2017-08-10] MEDS: FUROSEMIDE 20 MG/2 ML VIAL IV PUSH SCH (09:08)
[2017-08-10] MEDS: ALVIMOPAN 12 MG CAPSULE PO SCH (09:08)
[2017-08-10] MEDS: hydrALAZINE HCL 50 MG TAB PO SCH (09:09)
[2017-08-10] MEDS: LISINOPRIL 20 MG TAB PO SCH (09:09)
[2017-08-10] MEDS: METOPROLOL TARTRATE 50 MG TAB PO SCH (09:09)
[2017-08-10] MEDS: PRAVASTATIN SOD 40 MG TAB PO SCH (09:09)
--- NOTE | 2017-08-10 10:01 | HHI.PR ---
Subjective Remarks No N or V. No BMs but passing gas. Small mucous BM. May want to go home later today. Denies pain or distention Objective Vital Signs Date Time Temp Pulse Resp B/P (MAP) Pulse Ox O2 Delivery O2 Flow Rate FiO2 08/10/17 08:00 98.2 71 17 168/81 (110) 92 08/10/17 00:00 98.1 74 20 157/82 (107) 90 08/09/17 20:00 98.8 78 20 170/88 (115) 91 08/09/17 16:00 99.4 82 16 173/81 (111) 92 08/09/17 12:00 99.0 73 18 164/82 (109) 92 I/O 08/09/17 08/09/17 08/09/17 08/10/17 08/10/17 08/10/17 07:00 15:00 23:00 07:00 15:00 23:00 Intake Total 480 ml Output Total 850 ml Balance -370 ml Intake Oral 480 ml Output Urine Total 850 ml # Bowel Movements 0 Result Diagram: 08/08/1733 08/08/17 0633 Objective Remarks VS-S Abd: soft, possible mild distention. Doubt significant Sub Q seroma at this time. Wound clean,not red. Assessment and Plan Assessment and Plan Stable POD#3 Will D/C later today if she feels up to it and tolerates diet. Ilan Ledesma MD Aug 10, 2017 10:00
== END 2017-08-10 12:45 | disposition home or self-care (01) | DRG 355 ==
LOC: HSDC 11:52 → HSDI 16:00 → N07B 20:07 → OBSVTOIN 08-10 10:02
PROVIDERS: ADMIT Colon & Rectal Surgery; ATTEND Colon & Rectal Surgery
PROC: 0WPF0JZ Removal of Synthetic Substitute from Abdominal Wall, Open Approach (ICD-10-PCS; 2017-08-06)
PROC: 0WUF0JZ Supplement Abdominal Wall with Synthetic Substitute, Open Approach (ICD-10-PCS; principal; 2017-08-06 13:56)
DX: K43.2 Incisional hernia without obstruction or gangrene (principal); I10 Essential (primary) hypertension; E78.5 Hyperlipidemia, unspecified; E03.9 Hypothyroidism, unspecified; Z88.5 Allergy status to narcotic agent; Z88.2 Allergy status to sulfonamides; Z88.8 Allergy status to other drugs, medicaments and biological substances
CPT/HCPCS: 80048; 85025; 94150; 96361; 96365; 96366; 96368; 96375; 96376; C1781; G0378; J0131; J0690; J1885; J1940; J2250; J2270; J2405; J2710; J2765; J3010; J3480; J7120